=== PATIENT | male | born 1980 | race Caucasian/White ===

== ENCOUNTER 2017-05-12 22:24 | Emergency (ER) | payer OTHER ==
[~2017-05-12] VITALS: Ht 175.3 cm; Wt 67.4 kg
[~2017-05-12 22:24] MED LIST: META800 PO; PROM25SU8 PO; Z.0.NO CURRENT MEDS
[2017-05-12 22:27] VITALS: BP 137/78; PULSE 71; RESP 16; TEMP 98.1; O2SAT 98
[2017-05-12] MEDS ORDERED: LIDOCAINE HCL 1% PF 10 ML VIAL INFIL ONE (23:00)
[2017-05-12] MEDS ORDERED: ceFAZolin INJ 1,000 MG VIAL IM ONE (23:45)
[2017-05-12] MEDS ORDERED: TETANUS/DIPHTHERIA TOXOID ADULT 0.5 ML VIAL IM ONE (23:45)
--- NOTE | 2017-05-12 23:52 | PD ---
HPI Chief Complaint: Laceration/Skin Injury Time Seen by Provider: 22:56 Travel History International Travel<30 days: No Contact w/Intl Traveler<30days: No Traveled to known affect area: No History of Present Illness HPI 36-year-old male cut left index finger while using an X-[employer] knife removing grout around 2 PM today. Patient is right-handed. Injury was to his left index finger over the PIP. Patient has no issue with extending the digit but states has noted since putting a dressing on the finger that he has increased discomfort with digit flexion distally. Has not had any numbness or tingling. Patient denies other injury. Patient's last tetanus immunization was 2010. Patient states that he put a dressing on it and recheck it again at 8 PM is continued to bleed so he decided to come to the emergency room to have it evaluated. [facility] Past Medical History Narrative Medical Posttraumatic stress disorder herniorrhaphy myringotomy tobacco use; nursing notes reviewed Medical History: Denies Significant Hx Diminished Hearing: No Tetanus Vaccination: < 5 Years Influenza Vaccination: No Past Surgical History Abdominal Surgery: Yes (hernia) Tonsillectomy: Yes Other Surgery: Yes (tubes in ears) Social History Alcohol Use: No Tobacco Use: Yes (10 cigs a day) Substance Use: No Allergies-Medications (Allergen,Severity, Reaction): Coded Allergies: iodine (Verified Allergy, Intermediate, 05/12/17) shellfish derived (Verified Allergy, Intermediate, swelling, 05/12/17) Narrative Medication PTSD medication Review of Systems Except as stated in HPI: all other systems reviewed are Neg Physical Exam Narrative General: Well-developed well-nourished male no acute distress or respiratory distress Extremity, attention left index finger 1 cm linear laceration over the dorsal aspect of the left index finger at the PIP with ongoing oozing of blood without deformity or obvious foreign body debris patient has intact extension of the digit pain with flexion at the PIP capillary refill is brisk and less than 2 seconds. Data Data Last Documented VS Vital Signs Date Time Temp Pulse Resp B/P (MAP) Pulse Ox O2 Delivery O2 Flow Rate FiO2 05/12/17 22:27 98.1 71 16 137/78 (97) 98 Orders Orders Lidocaine Pf 1% Inj (Xylocaine-Mpf 1% In (05/12/17 23:00) Finger ([id number]) (05/12/17 ) Wound Care (05/12/17 23:40) Splint Or Brace Apply/Monitor (05/12/17 23:40) Cefazolin Inj (Ancef Inj) (05/12/17 23:45) Tetanus/Diphtheria Tox Adult (Tetanus/Di (05/12/17 23:45) MDM Medical Decision Making Medical Screen Exam Complete: Yes Emergency Medical Condition: Yes Medical Record Reviewed: Yes Differential Diagnosis laceration, tendon injury, joint capsule interruption, neurovascular injury, fracture, FB Narrative Course Wound site cleansed irrigated and sutured closed tetanus status updated patient given Ancef IM Procedures Procedure Narrative LACERATION LOCATION: Left index finger LENGTH: 1 cm NUMBER OF STITCHES/JAVI: 3 REPAIR: The area of the laceration was prepped with Betadine and sterilely draped. The laceration was infiltrated with 1% lidocaine plain Hibiclens and ChloraPrep. The wound was copiously irrigated and explored without evidence of foreign body, tendon injury or neurovascular injury. The wound was closed using 5-0 nylon. This was a single layer repair. A sterile dressing was applied. The patient was advised to keep the dressing clean and dry. Patient tolerated the procedure well. Diagnosis Primary Impression: Laceration of finger, index Qualified Codes: S61.211A - Laceration without foreign body of left index finger without damage to nail, initial encounter Referrals: Hand Surgeon 1 day Extrusion Bender hand surgeon: Dr Vo Patient Instructions: General Instructions Departure Forms: Tests/Procedures, Work Release Special Instructions: no use left index finger/hand x 5 days Additional Instructions: Follow up with Hand Surgeon --call office in the AM for appointment Wear splint complete course of antibiotic ibuprofen for pain associated with inflammation or for fever 100.4F or greater per package directions Monitor temperature for fever 100.4F or greater and take antibiotic Wound check at 2 days suture removal in 7-10 days--this will be determined by hand surgeon Return to the emergency department for fever chills redness drainage swelling or any concerns Disposition: 01 DISCHARGE HOME Condition: Stable Margaret Mar MD May 12, 2017 23:52
--- NOTE | 2017-05-13 00:18 | RADRPT ---
EXAM DATE/TIME: 05/12/2017 23:50 [facility] COMPARISON: No previous studies available for comparison. INDICATIONS : Laceration to left 2nd digit today MEDICAL HISTORY : None. SURGICAL HISTORY : None. ENCOUNTER: Initial ACUITY: 1 day PAIN SCORE: 4/10 LOCATION: Left 2nd PIP joint FINDINGS: No definite fractures, or dislocations are identified. No definite lytic or sclerotic lesion is seen . CONCLUSION: Unremarkable study. Jackson Gordon MD on May 13, 2017 at 0:16 Board Certified Radiologist. This report was verified electronically.
[2017-05-13 00:33] VITALS: BP 142/77
== END 2017-05-13 00:38 | disposition home or self-care (01) ==
LOC: PHED 22:24 → MERGE 22:24 → PHED 05-13 00:38
DX: S61.211A Laceration without foreign body of left index finger without damage to nail, initial encounter (principal); W26.0XXA Contact with knife, initial encounter; Y93.E9 Activity, other interior property and clothing maintenance; Z72.0 Tobacco use; Z23 Encounter for immunization
CPT/HCPCS: 12001; 73140; 90471; 90714; 96372; 99283; J0690

== ENCOUNTER 2017-07-04 20:45 | Emergency (ER) | payer OTHER ==
[~2017-07-04] VITALS: Ht 175.3 cm; Wt 68.1 kg
[2017-07-04 20:59] VITALS: BP 146/87; PULSE 76; RESP 20; TEMP 98.4; O2SAT 99
[2017-07-04] MEDS ORDERED: VENL75CA44 PO (21:12)
--- NOTE | 2017-07-04 21:12 | PD ---
HPI Chief Complaint: Medication Refill Request Time Seen by Provider: 21:10 Travel History International Travel<30 days: No Contact w/Intl Traveler<30days: No History of Present Illness HPI Patient is a 36-year-old male with a history of depression presents emergency department for evaluation of refill of his venlafaxine. Patient has no complaints currently. He was seen by triage mildly tremulous and anxious and somewhat argumentative, security was called preemptively on him but they did not have to intervene. The patient has no physical complaints currently. When asked him what happened out front he states nothing just a misunderstanding. He denies any suicidal homicidal ideation for me. States been out of his medicines for the past 3 days and [facility] Past Medical History Diminished Hearing: No Past Surgical History Abdominal Surgery: Yes (hernia) Tonsillectomy: Yes Other Surgery: Yes (tubes in ears) Social History Alcohol Use: No Tobacco Use: Yes (10 cigs a day) Substance Use: No Allergies-Medications (Allergen,Severity, Reaction): Coded Allergies: shellfish derived (Unverified Allergy, Severe, HIVES, SOB, THROAT CLOSING , 07/04/17) iodine (Verified Allergy, Intermediate, 07/04/17) Reported Meds & Prescriptions Reported Meds & Active Scripts Active Venlafaxine ER 24 HR (Venlafaxine HCl) 75 Mg Cap 75 Mg PO DAILY Review of Systems Except as stated in HPI: all other systems reviewed are Neg Physical Exam Narrative GENERAL: Well-nourished, well-developed patient. Sitting calmly in a stretcher in no obvious distress. SKIN: Focused skin assessment warm/dry. HEAD: Normocephalic. EYES: No scleral icterus. No injection or drainage. NECK: Supple, trachea midline. No JVD or lymphadenopathy. CARDIOVASCULAR: Regular rate and rhythm without murmurs, gallops, or rubs. RESPIRATORY: Breath sounds equal bilaterally. No accessory muscle use. GASTROINTESTINAL: Abdomen soft, non-tender, nondistended. MUSCULOSKELETAL: No cyanosis, or edema. BACK: Nontender without obvious deformity. No CVA tenderness. PSYCHIATRIC: Denies suicidal or homicidal ideation, flat affect, normal mood, insight and judgment normal. Data Data Last Documented VS Vital Signs Date Time Temp Pulse Resp B/P (MAP) Pulse Ox O2 Delivery O2 Flow Rate FiO2 4/9/18 21:21 78 18 97 07/04/17 20:59 98.4 146/87 (106) Orders Orders Ed Discharge Order (07/04/17 21:12) MDM Medical Decision Making Medical Screen Exam Complete: Yes Emergency Medical Condition: No Differential Diagnosis Encounter for medication refill, depression, bipolar, schizophrenia. Narrative Course Patient room to the emergency department, does not appear to have any medical emergency at this time, I am happy to refill his medication for 2 weeks, discussed he needs [facility]. He is stable for discharge per Diagnosis Primary Impression: Medication refill Med/Other Pt SpecificInfo: Prescription(s) given Scripts Venlafaxine ER 24 HR (Venlafaxine ER 24 HR) 75 Mg Cap 75 MG PO DAILY, #14 CAP 0 Refills Prov: Torres Zapata MD 07/04/17 Disposition: 01 DISCHARGE HOME Condition: Stable Torres Zapata MD Jul 04, 2017 21:12
== END 2017-07-04 21:22 | disposition home or self-care (01) ==
LOC: PHED 20:45
DX: Z76.0 Encounter for issue of repeat prescription (principal); F17.210 Nicotine dependence, cigarettes, uncomplicated; F32.9 Major depressive disorder, single episode, unspecified
CPT/HCPCS: 99281